=== PATIENT | female | born 1960 | race Caucasian/White ===

== ENCOUNTER → 2017-07-30 | Outpatient (CLI) | payer OTHER | LOC: BRMIMAGING 14:13 | PROVIDERS: ATTEND Family Medicine | DX: Z13.820 Encounter for screening for osteoporosis (principal); E07.9 Disorder of thyroid, unspecified; Z78.0 Asymptomatic menopausal state; Z79.899 Other long term (current) drug therapy; Z79.890 Hormone replacement therapy ==